=== PATIENT | female | born 1975 | race African-American/Black ===

== ENCOUNTER 2020-08-24 11:39 | Outpatient (CLI) | payer OTHER ==
--- NOTE | 2020-08-24 14:12 | RAD ---
LUMBAR SPINE 2 VIEWS; Date: 08/24/2020 HISTORY: Bilateral lower extremity radiculopathy. FINDINGS: Postoperative clips in the right upper quadrant suggest prior cholecystectomy. The lumbar pedicles ap pear intact on frontal imaging. The lateral exam demonstrates normal vertebral body height and alignm ent. There is lower lumbar spine facet hypertrophic change. There is disc space narrowing with degene rative end plate change and anterior osteophyte formation at the L5-S1 level. No acute osseous abnorm ality. IMPRESSION: No acute findings. POS: [facility]
--- NOTE | 2020-08-24 14:13 | RAD ---
2 VIEWS RIGHT KNEE: Date: 10/24/2019 HISTORY: Knee pain. FINDINGS: No knee joint effusion, fracture, or evidence of dislocation. IMPRESSION: No acute findings. POS: [facility]
== END 2020-08-24 11:40 | disposition home or self-care (01) ==
LOC: BICRAD 11:39
PROVIDERS: ATTEND Internal Medicine
DX: Z02.71 Encounter for disability determination (principal)
CPT/HCPCS: 72100

== ENCOUNTER 2022-07-23 00:04 | Emergency (ER) | payer SELFPAY ==
[2022-07-23] MEDS ORDERED: Ketorolac Tromethamine 30 MG/ML VIAL ONE (03:33)
== END 2022-07-23 04:45 | disposition home or self-care (01) ==
LOC: ERS 00:04
DX: M25.511 Pain in right shoulder (principal); I10 Essential (primary) hypertension; E11.9 Type 2 diabetes mellitus without complications; E78.00 Pure hypercholesterolemia, unspecified; F17.210 Nicotine dependence, cigarettes, uncomplicated
CPT/HCPCS: 96372; J1885